=== PATIENT | male | born 1985 | race Caucasian/White ===

== ENCOUNTER 2019-01-29 01:54 | Inpatient (IN) | payer MEDICAID ==
[~2019-01-29] VITALS: Ht 182.9 cm; Wt 84.8 kg
[2019-01-30] MEDS ORDERED: QUEtiapine FUMARATE 100 MG TABLET PO PRN (01:30)
[2019-01-30] MEDS ORDERED: ZOLPIDEM TARTRATE 10 MG TABLET PO PRN (01:30)
[2019-01-30 02:45] VITALS: BP 130/88
[2019-01-30 02:53] VITALS: BP 130/88
[2019-01-30] MEDS ORDERED: ONDANSETRON HCL 4 MG TABLET PO PRN (05:30)
[2019-01-30] MEDS ORDERED: NICOTINE 14 MG/24 HOUR PATCH TD PRN (05:30)
[2019-01-30] MEDS ORDERED: MAG HYDROX/AL HYDROX/SIMETH ES 30 ML SUSPENSION UDCUP PO PRN (05:30)
[2019-01-30] MEDS ORDERED: LOPERAMIDE HCL 2 MG CAPSULE PO PRN (05:30)
[2019-01-30] MEDS ORDERED: PETROLATUM,WHITE 28 GM JELLY TP PRN (05:30)
[2019-01-30] MEDS ORDERED: GuaiFENesin/D-METHORPHAN [SUGAR-FREE] 200-20MG/10 ML SYRUP UDCUP PO PRN (05:30)
[2019-01-30] MEDS ORDERED: CloNIDine HCL 0.1 MG TABLET PO PRN (05:30)
[2019-01-30] MEDS ORDERED: ACETAMINOPHEN 325 MG TABLET PO PRN (05:30)
[2019-01-30] MEDS ORDERED: IBUPROFEN 400 MG TABLET PO PRN (05:30)
[2019-01-30] MEDS ORDERED: DOCUSATE SODIUM 100 MG CAPSULE PO PRN (05:30)
[2019-01-30] MEDS ORDERED: ALBUTEROL SULFATE HFA 90 MCG/PUFF 8 GM INHALER IH PRN (05:30)
[2019-01-30] MEDS ORDERED: MAGNESIUM HYDROXIDE SUSPENSION 30 ML UDCUP PO PRN (05:30)
[2019-01-30 10:15] VITALS: BP 116/60
[2019-01-30 13:39] LABS: GLUCOMETER DEV NAME(LOC) BV3N.; GLUCOSE,POINT OF CARE 189 MG/DL (70-110)
[2019-01-30 16:00] VITALS: BP 104/62
[2019-01-30] MEDS: QUEtiapine FUMARATE 200 MG TABLET PO SCH (21:00)
[2019-01-31] MEDS ORDERED: DiphenhydrAMINE HCL 50 MG/ML VIAL ONE (10:42)
[2019-01-31] MEDS ORDERED: LORazepam 2 MG/ML VIAL ONE (10:42)
[2019-01-31] MEDS ORDERED: HALOPERIDOL LACTATE 5 MG/ML VIAL IM ONE (10:45)
[2019-01-31] MEDS ORDERED: DiphenhydrAMINE HCL 50 MG/ML VIAL IM ONE (10:45)
[2019-01-31] MEDS ORDERED: LORazepam 2 MG/ML VIAL IM ONE (10:45)
[2019-01-31] MEDS: QUEtiapine FUMARATE 200 MG TABLET PO SCH (21:00)
[2019-02-01] MEDS: QUEtiapine FUMARATE 200 MG TABLET PO SCH ×2 (09:00→21:00)
[2019-02-01] MEDS ORDERED: DiphenhydrAMINE HCL 50 MG/ML VIAL ONE (10:38)
[2019-02-01] MEDS ORDERED: LORazepam 2 MG/ML VIAL ONE (10:38)
[2019-02-01] MEDS ORDERED: HALOPERIDOL LACTATE 5 MG/ML VIAL ONE (10:38)
[2019-02-01 16:42] VITALS: BP 98/57
[2019-02-02 08:07] VITALS: BP 101/61
[2019-02-02 08:31] LABS: EOSINOPHILS % (AUTO) 5.1 % (1.0-6.0); HEMATOCRIT 44.9 % (41-53); HEMOGLOBIN 14.7 g/dL (13.5-17.5); LYMPHOCYTES % (AUTO) 30.9 % (22.0-44.0); MEAN CORPUSCULAR HGB CONC 32.7 G/dL (31.0-37.0); MEAN CORPUSCULAR VOLUME 89 fL (80-100); MONOCYTES # (AUTO) 0.5 K/uL (0.1-1.0); MONOCYTES % (AUTO) 7.2 % (2.0-9.0); NEUTROPHILS # (AUTO) 3.5 K/uL (1.8-7.7); NEUTROPHILS % (AUTO) 55.8 % (40.0-70.0); PLATELET COUNT (AUTO) 251 K/uL (150-450); RED BLOOD CELL COUNT(AUTO) 5.07 MIL/uL (4.50-5.90); RED CELL DISTRIBUTION WIDTH 14.4 % (11.5-14.5)
[2019-02-02] MEDS: QUEtiapine FUMARATE 200 MG TABLET PO SCH ×2 (08:52→21:00)
[2019-02-02 08:55] LABS: HEMOGLOBIN A1C 5.6 % (4.5-6.2)
[2019-02-02 09:12] LABS: ALANINE AMINOTRANSFERASE 29 U/L (12-78); ALBUMIN 3.3 g/dL (3.4-5.0); ALKALINE PHOSPHATASE 81 U/L (46-116); ANION GAP 3 mmol/L (8-16); ASPARTATE AMINOTRANSFERASE 35 U/L (15-37); BILIRUBIN,TOTAL 0.6 mg/dL (0.1-1.0); CALCIUM, TOTAL 8.7 mg/dL (8.8-10.5); CARBON DIOXIDE 31 mmol/L (22-29); CHLORIDE 103 mmol/L (98-107); CHOL/HDL RATIO 3.3 (4.2-7.3); CHOLESTEROL 152 mg/dL (131-200); CREATININE 0.88 mg/dL (0.60-1.30); GLOMERULAR FILTR. RATE CALC > 60 mL/min (>60); GLUCOSE,RANDOM 79 mg/dL (70-110); HDL CHOLESTEROL 46 mg/dL (40-60); LDL CHOL (CALC.) 92 mg/dL (0-130); SODIUM SERUM 137 mmol/L (136-145); THYROID STIMULATING HORMONE 2.14 uIU/mL (0.36-3.74); TOTAL PROTEIN, SERUM 6.9 g/dL (6.4-8.2); TRIGLYCERIDES 68 mg/dL (15-150); UREA NITROGEN, BLOOD 18 mg/dL (7-18)
[2019-02-02 16:07] VITALS: BP 90/43
[2019-02-02] MEDS: LORazepam 2 MG TABLET PO PRN (21:01)
[2019-02-03 04:50] VITALS: BP 105/61
[2019-02-03] MEDS: QUEtiapine FUMARATE 200 MG TABLET PO SCH ×2 (08:28→20:18)
[2019-02-03 08:33] VITALS: BP 106/66
[2019-02-03] MEDS ORDERED: HALOPERIDOL LACTATE 5 MG/ML VIAL IM ONE (12:00)
[2019-02-03] MEDS ORDERED: DiphenhydrAMINE HCL 50 MG/ML VIAL IM ONE (12:00)
[2019-02-03] MEDS ORDERED: LORazepam 2 MG/ML VIAL IM ONE (12:00)
[2019-02-04] MEDS: QUEtiapine FUMARATE 200 MG TABLET PO SCH ×2 (08:42→20:19)
[2019-02-04 16:36] VITALS: BP 109/54
[2019-02-04] MEDS: LORazepam 2 MG TABLET PO PRN (20:19)
[2019-02-05 06:12] VITALS: BP 110/60
[2019-02-05 08:13] VITALS: BP 107/63
[2019-02-05] MEDS: QUEtiapine FUMARATE 200 MG TABLET PO SCH ×2 (09:31→20:14)
[2019-02-05 16:00] VITALS: BP 110/65
[2019-02-05] MEDS: LORazepam 2 MG TABLET PO PRN (20:15)
[2019-02-06 06:00] VITALS: BP 108/67
[2019-02-06] MEDS: QUEtiapine FUMARATE 200 MG TABLET PO SCH ×2 (08:11→20:26)
[2019-02-06 16:00] VITALS: BP 109/63
[2019-02-06] MEDS: LORazepam 2 MG TABLET PO PRN (20:26)
[2019-02-07 05:54] VITALS: BP 114/78
[2019-02-07 08:14] VITALS: BP 100/61
[2019-02-07] MEDS: QUEtiapine FUMARATE 200 MG TABLET PO SCH ×2 (08:48→20:19)
[2019-02-07 16:04] VITALS: BP 100/61
[2019-02-07] MEDS: LORazepam 2 MG TABLET PO PRN (21:19)
[2019-02-08 08:00] VITALS: BP 116/50
[2019-02-08] MEDS ORDERED: QUET200T PO (08:29)
[2019-02-08] MEDS: QUEtiapine FUMARATE 200 MG TABLET PO SCH (09:12)
[2019-02-08] MEDS ORDERED: QUET200T29 PO (10:17)
== END 2019-02-08 12:30 | disposition home or self-care (01) | DRG 750 ==
LOC: B3A 01-30 01:32
DX: F25.1 Schizoaffective disorder, depressive type (principal); R45.851 Suicidal ideations; Z59.0 Homelessness; F15.10 Other stimulant abuse, uncomplicated; K59.00 Constipation, unspecified; F19.10 Other psychoactive substance abuse, uncomplicated; Z79.899 Other long term (current) drug therapy
CPT/HCPCS: 83036; 84443; 87081; J1200; J1630; J2060

== ENCOUNTER 2022-02-11 14:26 | Inpatient (IN) | payer MEDICAID ==
[~2022-02-11] VITALS: Ht 180.3 cm; Wt 122.9 kg
[~2022-02-11 14:26] MED LIST: QUET200T PO; QUET200T30 PO
[2022-02-12] VITALS (10 sets, daily range): BP systolic 123–159; BP diastolic 70–91
[2022-02-12] MEDS ORDERED: QUEtiapine FUMARATE 100 MG TABLET PO PRN (03:15)
[2022-02-12] MEDS ORDERED: ONDANSETRON HCL 4 MG TABLET PO PRN (11:00)
[2022-02-12] MEDS ORDERED: ACETAMINOPHEN 325 MG TABLET PO PRN (11:00)
[2022-02-12] MEDS ORDERED: PETROLATUM,WHITE 28 GM JELLY TP PRN (11:00)
[2022-02-12] MEDS ORDERED: GuaiFENesin/D-METHORPHAN [SUGAR-FREE] 200-20MG/10 ML SYRUP UDCUP PO PRN (11:00)
[2022-02-12] MEDS ORDERED: IBUPROFEN 400 MG TABLET PO PRN (11:00)
[2022-02-12] MEDS ORDERED: ALBUTEROL SULFATE HFA 90 MCG/PUFF 8 GM INHALER IH PRN (11:00)
[2022-02-12] MEDS ORDERED: NICOTINE 14 MG/24 HOUR PATCH TD PRN (11:00)
[2022-02-12] MEDS ORDERED: LOPERAMIDE HCL 2 MG CAPSULE PO PRN (11:00)
[2022-02-12] MEDS ORDERED: DOCUSATE SODIUM 100 MG CAPSULE PO PRN (11:00)
[2022-02-12] MEDS ORDERED: CloNIDine HCL 0.1 MG TABLET PO PRN (11:00)
[2022-02-12] MEDS ORDERED: MAGNESIUM HYDROXIDE SUSPENSION 30 ML UDCUP PO PRN (11:00)
[2022-02-12] MEDS ORDERED: MAG HYDROX/AL HYDROX/SIMETH ES 30 ML SUSPENSION UDCUP PO PRN (11:00)
[2022-02-12] MEDS: LORazepam 2 MG TABLET PO PRN (18:14)
[2022-02-12] MEDS: ZOLPIDEM TARTRATE 10 MG TABLET PO PRN (20:32)
[2022-02-13] VITALS (7 sets, daily range): BP systolic 116–143; BP diastolic 68–94
[2022-02-13 07:34] LABS: HEMATOCRIT 42.6 % (41-53); HEMOGLOBIN 14.5 g/dL (13.5-17.5); MEAN CORPUSCULAR HEMOGLOBIN 29.9 pg (26.0-34.0); MEAN CORPUSCULAR VOLUME 88 fL (80-100); PLATELET COUNT (AUTO) 194 K/uL (150-450); RED BLOOD CELL COUNT(AUTO) 4.84 MIL/uL (4.50-5.90)
[2022-02-13 08:00] LABS: ALANINE AMINOTRANSFERASE 118 U/L (12-78); ALBUMIN 3.4 g/dL (3.4-5.0); ALKALINE PHOSPHATASE 98 U/L (46-116); ANION GAP 5 mmol/L (8-16); ASPARTATE AMINOTRANSFERASE 61 U/L (15-37); BILIRUBIN,TOTAL 0.6 mg/dL (0.1-1.0); CALCIUM, TOTAL 8.7 mg/dL (8.8-10.5); CARBON DIOXIDE 34 mmol/L (22-29); CHLORIDE 102 mmol/L (98-107); CHOL/HDL RATIO 4.7 (4.2-7.3); CHOLESTEROL 166 mg/dL (131-200); CREATININE 0.99 mg/dL (0.60-1.30); FREE T4 (FREE THYROXINE) 0.74 ng/dL (0.76-1.46); GLOMERULAR FILTR. RATE CALC > 60 mL/min (>60); GLUCOSE,RANDOM 94 mg/dL (70-110); HDL CHOLESTEROL 35 mg/dL (40-60); LDL CHOL (CALC.) 51 mg/dL (0-130); POTASSIUM 4.6 mmol/L (3.5-5.1); SODIUM SERUM 141 mmol/L (136-145); THYROID STIMULATING HORMONE 3.78 uIU/mL (0.36-3.74); TRIGLYCERIDES 398 mg/dL (15-150); UREA NITROGEN, BLOOD 14 mg/dL (7-18)
[2022-02-13 10:23] LABS: BAND NEUTROPHILS % (MANUAL) 1 % (0-5); EOSINOPHILS % (MANUAL) 8 % (1-6); LYMPHOCYTES % (MANUAL) 42 % (22-44); MONOCYTES % (MANUAL) 3 % (2-9); SEGMENTED NEUTROPHILS % 46 % (40-70)
[2022-02-13] MEDS: LORazepam 2 MG TABLET PO PRN ×2 (11:14→20:55)
[2022-02-13] MEDS: QUEtiapine FUMARATE 100 MG TABLET PO SCH (16:57)
[2022-02-13] MEDS: ZOLPIDEM TARTRATE 10 MG TABLET PO PRN (20:55)
[2022-02-14 06:09] VITALS: BP 142/87
[2022-02-14 08:15] VITALS: BP 130/63
[2022-02-14] MEDS: QUEtiapine FUMARATE 100 MG TABLET PO SCH (09:00)
[2022-02-14] MEDS ORDERED: QUET100T34 PO (13:39)
== END 2022-02-14 15:48 | disposition home or self-care (01) | DRG 751 ==
LOC: B3A 02-12 03:20
PROVIDERS: ADMIT Psychiatry & Neurology Child & Adolescent Psychiatry; ATTEND Psychiatry & Neurology Child & Adolescent Psychiatry
DX: F33.2 Major depressive disorder, recurrent severe without psychotic features (principal); F10.10 Alcohol abuse, uncomplicated; F41.9 Anxiety disorder, unspecified; Z20.822 Contact with and (suspected) exposure to COVID-19; R00.0 Tachycardia, unspecified; F19.10 Other psychoactive substance abuse, uncomplicated; Y90.9 Presence of alcohol in blood, level not specified; Z71.51 Drug abuse counseling and surveillance of drug abuser; Z71.41 Alcohol abuse counseling and surveillance of alcoholic
CPT/HCPCS: 80053; 80061; 84439; 84443; 85007; 85027